=== PATIENT | male | born 1980 | race Caucasian/White ===

== ENCOUNTER → 2017-08-06 | Outpatient (CLI) | payer BC ==
--- NOTE | 2017-08-06 13:42 | MRI ---
EXAM DESCRIPTION: Cervical Spine: MRI. CLINICAL HISTORY: RADICULOPATHY COMPARISON: None. TECHNIQUE: Multiplanar MRI, multiple sequences, non-contrast High-field. FINDINGS: Fusion construct C6-7 with anterior plate and bilateral screws. Right uncinate spurs and moderate neural foraminal narrowing. Mild canal narrowing. Facets are negative. C5-6: Disc desiccation and minimal disc space loss. Right intraforaminal 4 mm disc protrusion with right neural foraminal stenosis and the disc is abutting the right C6 nerve root. Mild canal narrowing. Left neuroforamen patent. Facets are negative. Normal signal in the remaining discs with no bulging. Disc spaces preserved. Canal and neural foramina are patent. Facets are negative. No cord compression or cord edema. Spine is minimally lordotic. Atlantoaxial joint is negative. Base of the cerebellar tonsils is at the level of the foramen magnum. Paravertebral soft tissues are unremarkable. No scoliosis. Vertebral bodies are not compressed at any level. Normal marrow signal in the remaining vertebral bodies and the posterior elements. IMPRESSION: 1. Prior ACDF C6-7 with no canal stenosis soft tissue mass or abnormal fluid collection. Right uncinate spur or other bone density with right neural foraminal stenosis. Correlate for right C7 radiculopathy. 2. Right intraforaminal protrusion C5-6 disc with right neural foraminal stenosis, disc abutting the right C6 nerve root. Correlate for radiculopathy. Electronically signed by: Joel Santa MD 08/06/2017 1:41 PM CDT
== END | disposition home or self-care (01) ==
LOC: RAD 07:13
PROVIDERS: ATTEND Nurse Practitioner Family
DX: M50.222 Other cervical disc displacement at C5-C6 level (principal)

== ENCOUNTER → 2017-08-11 | Outpatient (CLI) | payer BC ==
--- NOTE | 2017-08-12 09:13 | CT ---
EXAM DESCRIPTION: Cervical Spine CLINICAL HISTORY: CERVICAL DISC HERNIATION WITH RADICULOPATHY COMPARISON: MRI cervical spine August 06, 2017 TECHNIQUE: Cervical CT is performed with thin-section axial imaging. MPRs are created and reviewed as well. This exam was performed according to our departmental dose-optimization program, which includes automated exposure control, adjustment of the mA and/or kV according to patient size and/or use of iterative reconstruction technique. FINDINGS: Straightening of the cervical spine with prior ACDF at the C6-7 level with anterior plating and anterior interbody fusion with graft material in anatomic alignment is noted. Complete bony fusion at the disc spaces not present but at least partial anterior disc fusion in anatomic alignment is evident. The cervical spinal canal diameter is in the lower range of normal on a developmental basis. Focal localized stenosis is not apparent. The thecal sac and neural foramina at C2-3 and C3-4 are essentially normal with mild annular disc bulge at C4-5. At C5-6 annular bulge with very slight uncinate and bony prominence narrowing the right neural foramen is present without a well-defined disc bulge into the neural foramen and confirmed. At C6-7 ACDF is noted. There is bony compromise of the right neural foramen secondary to uncinate prostate hypertrophy and mild residual bony ridging at the disc space laterally on the right. Right C7 neural compression should be considered. Pulmonary apices and upper lung oneill are clear. The facet joints and posterior elements are normal in appearance. IMPRESSION: 1. Prior internal fixation and ACDF of the C6-7 disc space with satisfactory alignment with mild bony compromise of the neural foramen and right lateral recess secondary to bony hypertrophy and uncinate process hypertrophy consistent with right C7 neural compression. 2. Annular bulge C5-6 with mild bony prominence compromising the inferior right C5-6 neural foramen without a distinct or definite disc herniation into the foramen noted. 3. Constitutionally small spinal canal in the AP diameter without additional abnormalities. Electronically signed by: Ralph Romero MD 08/12/2017 9:12 AM CDT
== END | disposition home or self-care (01) ==
LOC: MRI 14:19
PROVIDERS: ATTEND Specialist
DX: M99.71 Connective tissue and disc stenosis of intervertebral foramina of cervical region (principal); M50.10 Cervical disc disorder with radiculopathy, unspecified cervical region

== ENCOUNTER → 2017-08-27 | Outpatient (CLI) | payer BC | LOC: LAB.O 13:40 | PROVIDERS: ATTEND Psychiatry & Neurology Neurology | DX: M45.0 Ankylosing spondylitis of multiple sites in spine (principal); G60.3 Idiopathic progressive neuropathy; H46.9 Unspecified optic neuritis; M81.8 Other osteoporosis without current pathological fracture; M35.3 Polymyalgia rheumatica; M33.22 Polymyositis with myopathy; G61.81 Chronic inflammatory demyelinating polyneuritis; B02.29 Other postherpetic nervous system involvement; L40.59 Other psoriatic arthropathy; M54.16 Radiculopathy, lumbar region; I73.00 Raynaud's syndrome without gangrene ==

== ENCOUNTER → 2018-05-06 | Outpatient (CLI) | payer BC ==
--- NOTE | 2018-05-06 11:56 | US ---
EXAM DESCRIPTION: Soft Tissue,Extremity: ULTRASOUND. CLINICAL HISTORY: 37 years Male CYST ON LEFT SHOULDER. Palpable on the anterior medial aspect of the shoulder. COMPARISON: None Available. TECHNIQUE: Transcutaneous scanning: Moore-scale and Doppler modes. FINDINGS: Circumscribed, heterogeneous, hypoechoic mass in the subcutaneous adipose tissue with mass effect on the subcutaneous fascia. Corresponds to palpable lesion The capsule is slightly more hypoechoic than the remainder of the mass. Dimensions are 2.4 x 2.4 x 1.7 cm, and the mass is wider than tall and predominantly posterior enhancement features. Minimal vascularity adjacent to the capsule. No distinct cyst in the mass or exteriorly. No large calcifications or parenchymal edema. No overlying skin changes. IMPRESSION: Complex cyst more likely than lipoma, corresponding to palpable lesion on the anterior medial left shoulder. Well-defined capsule. Vascularity abutting the capsule. No cysts. If enlarging or painful, consider follow-up MRI scan without and with IV contrast. Electronically signed by: Joel Santa MD 05/06/2018 11:55 AM [facility]
== END ==
LOC: US 08:58
PROVIDERS: ATTEND Family Medicine
DX: D48.5 Neoplasm of uncertain behavior of skin (principal)

== ENCOUNTER 2018-05-08 10:35 | Emergency (ER) | payer BC ==
[2018-05-08 11:00] VITALS: TEMP 98.1
--- NOTE | 2018-05-08 11:01 | ED.PDOC ---
History of Present Illness - General Chief Complaint: Skin/Abrasion/Tear Stated Complaint: Swollen R groin area Time Seen by Provider: 05/08/18 10:50 Source: patient Exam Limitations: no limitations - History of Present Illness Initial Comments: Tra Chaudhary 37 y/o male stated that he had worsening tender skin swelling on the right perineal area which started 3 days ago.Denies fever,dysuria,or diarrhea.no chronic medical problem. Timing/Duration: getting worse, other - 3 days Severity: moderate Improving Factors: movement Worsening Factors: rest Associated Symptoms: denies symptoms Allergies/Adverse Reactions: Allergies NO KNOWN ALLERGY Allergy (Verified 05/08/18 10:46) Home Medications: Ambulatory Orders Acetamin W/Cod #3 Tab [Tylenol w/CODEINE #3] 1 ea PO Q6HRS #14 tab 05/08/18 Cyclobenzaprine HCl [Flexeril] 10 mg PO BID 05/08/18 HYDROcodone 10MG/APAP 325MG [[place] 10/325] 2 tab PO BID 05/08/18 Meloxicam 15 mg PO DAILY 05/08/18 RX: Clindamycin HCl 300 mg PO TID #21 cap 05/08/18 Review of Systems - Review of Systems Constitutional: States: no symptoms reported EENTM: States: no symptoms reported Respiratory: States: no symptoms reported Cardiology: States: no symptoms reported Gastrointestinal/Abdominal: States: no symptoms reported Skin: States: see HPI All other Systems: Reviewed and Negative, No Change from Baseline Past Medical History (General) - Patient Medical History Hx Stroke: No Hx of COPD: No Hx Congestive Heart Failure: No Hx Diabetes: No Hx MRSA: No Surgical History: other - mostly bone surgeries - Vaccination History Hx Tetanus, Diphtheria Vaccination: Yes Hx Influenza Vaccination: No Hx Pneumococcal Vaccination: No - Social History Hx Tobacco Use: No Hx Alcohol Use: No Hx Physical Abuse: No Hx Emotional Abuse: No - Female History Patient : No Family Medical History - Family History Father Family History: No Known Living Status: Still Living Physical Exam - Physical Exam General Appearance: Alert, Comfortable, No apparent distress Eye Exam: bilateral normal Ears, Nose, Throat: hearing grossly normal, normal ENT inspection, normal pharynx Neck: non-tender, normal inspection Respiratory: lungs clear, normal breath sounds, no respiratory distress Cardiovascular/Chest: normal peripheral pulses, regular rate, rhythm, no murmur Peripheral Pulses: radial,right: 2+, radial,left: 2+ Gastrointestinal/Abdominal: normal bowel sounds, non tender, soft Back Exam: no CVA tenderness, no vertebral tenderness Extremity: no pedal edema, no calf tenderness Neurologic: alert, oriented x 3 Skin Exam: normal color, warm/dry, other - tender erythematous swelling 5cm x 3 cm right perineal area Lymphatic: no adenopathy Progress - Progress Progress: 05/08/18 11:09 Vital Signs - 8 hr 05/08/18 10:51 Temperature 98.1 F Pulse Rate [ 107 H left brachial] Respiratory 20 Rate Blood Pressure 144/94 [right brachial ] O2 Sat by Pulse 97 Oximetry - Results/Orders Results/Orders: 05/08/18 11:01 Pelvis w/Contrast [CT] Stat 05/08/18 11:02 Hold Metformin x 48Hrs [id number] IV Care:Saline Lock per Protoc QSHIFT Laboratory Results - last 24 hr 05/08/18 05/08/18 05/08/18 11:34 11:34 11:34 WBC 12.9 H RBC 4.79 Hgb 15.5 Hct 45.6 MCV 95.3 H MCH 32.3 H MCHC 33.9 RDW 12.6 Plt Count 269 MPV 8.1 Absolute Neuts (auto) 8.70 H Absolute Lymphs (auto) 2.60 Absolute Monos (auto) 1.30 H Absolute Eos (auto) 0.30 Absolute Basos (auto) 0.10 Neutrophils % 67.1 Lymphocytes % 19.9 L Monocytes % 9.8 H Eosinophils % 2.5 Basophils % 0.7 Sodium 134 L Potassium 4.0 Chloride 99 L Carbon Dioxide 29 Anion Gap 10.0 L BUN 9 Creatinine 0.70 BUN/Creatinine Ratio 12.9 Random Glucose 98 Serum Osmolality 266.9 L Lactic Acid 1.2 Calcium 9.0 Total Bilirubin 0.6 AST 16 ALT 15 Alkaline Phosphatase 65 Serum Total Protein 7.1 Albumin 3.9 Globulin 3.2 Albumin/Globulin Ratio 1.2 - EKG/XRAY/CT CT Ordered: Yes - perineal abscess Procedures - Incision and Drainage #1 Site: right perineum;prepped with hibiclens and saline Procedure and Prep: sterile drapes applied, sterile dressings applied, gauze wick placed, irrigated, wound culture collected, pus drained - 10 cc Blade Size: 11 Procedure Comments: tolerated well Departure - Departure Clinical Impression: Perineal abscess, superficial Time of Disposition: 12:55 Disposition: Discharge to Home or Self Care Condition: Fair Departure Forms: ED Discharge - Pt. Copy, Patient Portal Self Enrollment Instructions: Abscess Incision and Drainage (DC) Referrals: ELAN WOLF MD [Primary Care Provider] - 1-2 Weeks Prescriptions: Acetamin W/Cod #3 Tab [Tylenol w/CODEINE #3] 1 ea PO Q6HRS #14 tab RX: Clindamycin HCl 300 mg PO TID #21 cap Home Medications: Ambulatory Orders Acetamin W/Cod #3 Tab [Tylenol w/CODEINE #3] 1 ea PO Q6HRS #14 tab 05/08/18 Cyclobenzaprine HCl [Flexeril] 10 mg PO BID 05/08/18 HYDROcodone 10MG/APAP 325MG [[place] 10/325] 2 tab PO BID 05/08/18 Meloxicam 15 mg PO DAILY 05/08/18 RX: Clindamycin HCl 300 mg PO TID #21 cap 05/08/18 Additional Instructions: Removal of packing 10 may [id number];return to ER as needed
[2018-05-08] MEDS ORDERED: CLINDAMYCIN IV 900MG 900 MG in PREMIX BAG 1 BAG IVPB ONE (11:02)
[2018-05-08] MEDS ORDERED: CLINDAMYCIN IV 900MG 50 ML IVPB ONE (11:06)
--- NOTE | 2018-05-08 12:16 | CT ---
PROCEDURE: CT Pelvis With Intravenous Contrast CLINICAL INDICATION: The patient is 37 years old and is Male; abscess perineum TECHNIQUE: Axial computed tomography images of the pelvis with intravenous contrast. Sagittal and coronal reformatted images were created and reviewed. This CT exam was performed according to our departmental dose-optimization program, which includes one or more of the following dose reduction techniques: automated exposure control, adjustment of the mA and/or kV according to patient size, and/or use of iterative reconstruction technique. COMPARISON: Prior magnetic resonance imaging of the lumbar spine without contrast from two years earlier, dated 03/31/2016. FINDINGS: BOWEL: No obstructive bowel loops in the pelvis. No mucosal thickening. APPENDIX: The appendix is visualized and is normal in appearance. INTRAPERITONEAL SPACE: New since the prior magnetic resonance imaging images, there is a focal rim-enhancing fluid collection in the RIGHT perineum with surrounding inflammation compatible with peritoneal abscess collection. It measures 4.2 x 2.5 cm on image 56/72 of series 2. No free air. BLADDER: Urinary bladder is unremarkable. REPRODUCTIVE: Unremarkable as visualized. BONES/JOINTS: There are postsurgical changes from prior ORIF of the inferior pubic rami, pubic symphysis and superior pubic rami. Old healed LEFT pubic ramus displaced fracture is again noted. Postsurgical changes through both iliac bones and SI joints as well as lower lumbar spine hardware are again noted. No dislocation. SOFT TISSUES: Unremarkable. VASCULATURE: Unremarkable. No lower abdominal aortic aneurysm. LYMPH NODES: No pelvic sidewall lymphadenopathy. IMPRESSION: New since the prior magnetic resonance imaging images, there is a focal rim-enhancing fluid collection in the RIGHT perineum with surrounding inflammation compatible with peritoneal abscess collection. It measures 4.2 x 2.5 cm on image 56/72 of series 2. Electronically signed by: Dannie Scanlon MD 05/08/2018 12:15 PM TESTING ANALYST
[2018-05-08] MEDS ORDERED: CHLORHEXIDINE GLUCONATE 4 % 15 ML UD TOP ONE (12:18)
[2018-05-08] MEDS ORDERED: LIDOCAINE 1% W/ EPINEPHRINE 20 ML VIAL INJ ONE (12:18)
[2018-05-08] MEDS ORDERED: MORPHINE SULFATE INJ 10 MG/ML VIAL IV ONE (12:57)
[2018-05-08 13:42] VITALS: BP 138/74; O2SAT 97
== END 2018-05-08 13:09 | disposition home or self-care (01) ==
LOC: ER 10:35
DX: L02.215 Cutaneous abscess of perineum (principal)
CPT/HCPCS: 36415; 72193; 80053; 83605; 85025; 87070; J2270; J3490